=== PATIENT | female | born 1940 | race Caucasian/White ===

== ENCOUNTER 2024-04-28 14:08 | Inpatient (IN) | payer OTHER, SELFPAY ==
[2024-04-28] VITALS (8 sets, daily range): BP systolic 89–110; BP diastolic 54–60; BMI 23.9
[2024-04-28 10:38] LABS: Urine Albumin 2+ (Neg - Trace); Urine Bilirubin Negative (Negative); Urine Character Clear (Clear); Urine Color Yellow; Urine Glucose Negative (Negative); Urine Ketone 2+ (Negative); Urine Leukocyte Negative (Negative); Urine Nitrite Negative (Negative); Urine Occult Blood Negative (Negative); Urine Specific Gravity 1.025 (<1.030); Urine Urobilinogen Negative (Neg - 1+)
[2024-04-28 10:46] LABS: Urine Red Blood Cell 0-2 /HPF (0-2); Urine Squamous Cell >30 /LPF (Few); Urine White Cell 0-2 /HPF (0-5)
[2024-04-28 10:53] LABS: % Basophils 0.5 % (0-2); % Eosinophils 2.2 % (0-6); % Immature Granulocytes 0.3 % (0-0.5); % Lymphocytes 11.7 % (20.5-51.1); % Monocytes 11.9 % (1.7-9.3); % Neutrophils 73.4 % (42.2-75.2); Absolute Eosinophils 0.1 10^3/uL (0-0.7); Absolute Lymphocytes 0.7 10^3/uL (1.2-3.4); Absolute Monocytes 0.7 10^3/uL (0.1-0.6); Absolute Neutrophils 4.3 10^3/uL (1.4-6.5); Hematocrit 38.8 % (37.0-47.0); Hemoglobin 12.9 g/dL (12.0-16.0); Mean Corp Hgb Conc. 33.2 g/dL (33.0-37.0); Mean Corpuscular Hgb 29.4 pg (27.0-31.0); Mean Corpuscular Volume 88.4 fL (81.0-99.0); Mean Platelet Volume 9.3 fL (7.4-10.4); Nucleated Red Blood Cells % 0 %; Platelet Count 229 10^3/uL (130-400); Red Blood Cell Count 4.39 10^6/uL (4.20-5.40); Red Cell Dist. Width 13.4 % (11.5-14.5); White Blood Cell Count 5.9 10^3/uL (4.8-10.8)
[2024-04-28] MEDS: DUONEB 3 ML INH ×3 (11:20→20:31)
--- NOTE | 2024-04-28 11:23 | ED.GENMED ---
History of Present Illness
General
Chief Complaint: Change in Mental Status
Source: patient and family
Exam Limitations: dementia
Time Seen by Provider: 04/28/24 10:31
Nursing documentation reviewed up to this point in time: agreed with
History of Present Illness
History of Present Illness:
84-year-old female prior stroke dementia smoker presents with confusion was in bed today covered in urine, she has been coughing which is not uncommon for her no fevers, no vomiting no chest pain appears to be closer to her baseline now per the
family than she was earlier no seizure-like activity seen
Past History
Past History
ED Past Medical History: HTN, Hypothyroidism, Psychiatric (Paranoid schizophrenia) and Other (Vocal cord surgery, memory issues)
ED Past Surgical History: None
Social History
Tobacco: Smoker
Alcohol: None
Drug: None
Personal:
Living: with family
Employment: Retired
Review of Systems
Review of Systems
Unable to obtain full review of systems at this time due to: dementia
Other source history: family
All Other Systems: Not applicable
Constitutional: Reports fatigue
Respiratory: Reports cough
Cardiac: Reports no symptoms
ABD/GI: Denies abdominal pain or nausea
: Reports incontinence
Musculoskeletal: Reports no symptoms
Skin: Reports no symptoms
Neurological: Reports weakness
Phy Exam
Physical Exam
Physical Exam:
Physical Exam
General: 84-year-old female slightly tachypneic occasional cough
Neck: Lips slightly
Heart: Regular
Lungs: Wheeze and rhonchi right greater than
Abdomen: Nontender
Neuro: Demented moves all extremities globally
Skin: no rash
Psychiatric: Cooperative demented
Extremities: no edema.
Course
Orders/Labs/Results
Orders:
Orders
04/28/24 10:30
Urinalysis Reflex To Culture Urgent
Date Specimen was Collected: 04/28/24
Time Specimen was Collected: 10:29
Urine Microscopic Reflex Cult Urgent
04/28/24 10:44
Complete Blood Count/With Diff Urgent
04/28/24 11:10
Ipratropium/Albuterol Sulfate [Duoneb] 3 ml INH R NOW STA
04/28/24 11:11
CT Head W/o Iv Contrast Urgent
Comment:
Reason For Exam: confusion
CR Chest - 2 Views Urgent
Comment:
Reason For Exam: cough
04/28/24 11:18
COVID-19 Antigen Urgent
Source: Nasal Swab
Comprehensive Metabolic Panel Urgent
Influenza A+B Rapid Molecular Urgent
MARY[facility] Source: Nasal Swab
Specimen Description:
04/28/24 12:51
Dexamethasone Sod Phosphate [Decadron] 6 mg IV NOW STA
04/28/24 12:52
ABG [Arterial Blood Gas] Urgent
%Oxygen/Room Air: 3
O2 Therapy [RESP] Urgent
Titrate/Wean O2 to maintain O2 sat greater than (%): 94
Abnormal Lab Results
04/28/24 04/28/24 04/28/24
10:30 10:44 11:18
Absolute Lymphs (auto) 0.7 L 10^3/uL
(1.2-3.4)
Absolute Monos (auto) 0.7 H 10^3/uL
(0.1-0.6)
Lymphocytes % 11.7 L %
(20.5-51.1)
Monocytes % 11.9 H %
(1.7-9.3)
Sodium 134 L mmol/L
(135-145)
Carbon Dioxide 21 L mmol/L
(22-30)
BUN 20 H mg/dl
(7-17)
Glucose 107 H mg/dl
(70-99)
Total Protein 5.7 L g/dl
(6.3-8.2)
Urine Ketones 2+ A
(Negative)
Urine Albumin (Reflex) 2+ A
(Neg - Trace)
04/28/24 10:44
04/28/24 11:18
Vital Signs
Initial and Last Documented VS:
Initial Vital Signs
Temp Pulse Resp BP Pulse Ox
98.0 F 98 18 89/55 95
04/28/24 10:08 04/28/24 10:08 04/28/24 10:08 04/28/24 10:08 04/28/24 10:08
Last Documented Vital Signs
Temp Pulse Resp BP Pulse Ox
98.0 F 88 22 104/57 95
04/28/24 10:08 04/28/24 11:00 04/28/24 11:00 04/28/24 11:00 04/28/24 11:07
MDM/Problems Addressed
Differential Diagnosis Includes:
Bronchitis pneumonia influenza dehydration UTI occult stroke occult head trauma
MDM/Problems Addressed:
Confusion weakness
Chronic conditions affecting care: Neurological disorder
Acute Exacerbation and/or Progression of Chronic Illness:
Smoker
Acute Exacerbation and/or Progression of Chronic Illness: Neurological disorder and Other (Smoke)
*Radiology
Radiology exam reviewed: preliminary read by ED provider and radiology read reviewed
*Pulse Oximetry
Patient hypoxic: yes
Comment: 88
*EKG
Interpreted by ED Provider?: Yes
Interpretation: abnormal
Comparison EKG: no comparison EKG present
Heart Rate: 78
Rate: normal
Ischemia: non-specific ST changes
*Compound Mixer Interpretation
Rate: normal
Interpretation: normal
Heart Rate: 78
Rhythm: sinus
*Critical Care Note
Total Time (30-74mins, 75-104mins- exclusive of procedures): Not Applicable
Update Note
Update Note:
Update labs noted urine noted chest x-ray and CT of the head noted patient does desaturate to 88% on room air while resting, suspect she has underlying COPD heavy smoker continues to smoke, family states she has been herself recently, has not take
her home will admit start of steroids and oxygen check ABG message sent to hospitalist
ED Attending Note
-
Portions of this chart may have been created with voice recognition software.� Occasional wrong word or��sound alike� substitutions may have occurred due to the inherent limitations of voice recognition software.
Discharge Plan
Departure
Patient Disposition: Admit
Date of Disposition: 04/28/24
Time of Disposition: 12:55
Admit to: Med/Surg
Presentation/result/management discussed w/ accepting MD/DO: Hospitalist
Patient with high blood pressure during this ER visit?: No
Condition: Fair
Covid-19: Negative COVID-19
Discharge Problem:
Hypoxia, Bronchitis
Prescriptions:
No Action
olanzapine 2.5 mg Tablet
2.5 mg PO HS
aspirin 81 mg Tablet,Delayed Release (Dr/Ec)
81 mg PO QPM
levothyroxine [Synthroid] 75 mcg Tablet
75 mcg PO DAILY
ferrous sulfate 325 mg (65 mg iron) Tablet
325 mg PO HS
Referrals:
Iman Girard DO [Family Provider] -
Interventions
Interventions:
*Risk Screen - Suicide Last Done: 04/28/24 10:08
*General Assessment Last Done: 04/28/24 10:08
*Neglect/Abuse Screening Last Done: 04/28/24 10:08
*ED COVID-19 Vaccine History Last Done: 04/28/24 10:16
ED- Neurological Assessment Last Done: 04/28/24 10:27
ED Swallowing Screen Last Done: 04/28/24 10:27
Discharge Date and Time
Print Language: ITALIAN
[2024-04-28 11:37] LABS: ALT (SGPT) 16 U/L (0-35); AST (SGOT) 35 U/L (14-36); Albumin 3.6 g/dl (3.5-5.0); Alkaline Phosphatase 90 U/L (38-126); Blood Urea Nitrogen 20 mg/dl (7-17); Calcium 8.8 mg/dl (8.4-10.2); Carbon Dioxide 21 mmol/L (22-30); Chloride 102 mmol/L (98-107); Glucose 107 mg/dl (70-99); Potassium 4.3 mmol/L (3.5-5.1); Sodium 134 mmol/L (135-145); Total Bilirubin 0.7 mg/dl (0.2-1.3); Total Protein 5.7 g/dl (6.3-8.2); eGFR > 60.00
[2024-04-28 11:55] LABS: COVID-19 Antigen Negative (Negative)
[2024-04-28] MEDS: DECADRON 6 MG IV (12:58)
--- NOTE | 2024-04-28 13:12 | HPS.HSE ---
Family Physician
-
Family Physician: Iman Girard DO
Chief Complaint
-
confusion
History of Present Illness
84-year-old female prior stroke dementia smoker,hypothyroidism presents with confusion since yesterday. she slept all day yesterday and soaked herself in the urine today. even though she has Dementia, she is not confused like this. she was very
disoriented. she has productive cough for three days. patient denied WILEY, dizzy.denied chest pain, sob. denied abdominal pain nausea vomiting and diarrhea. denied dysuria or hematuria.
UA, head CT, chest x ray negative. noted hypoxic in ER. patient received nebs and Decadron. admitting for further management.
Medical History
Past Medical History
Past Medical History: Reports Other
Additional Past Medical History:
Hypothyroidism
Anemia
Depression
Past Surgical History: Reports Other
Additional Past Surgical History:
Vocal cord nodule surgery
Cyst removed from right breast
Social History
Tobacco: Smoker (one pack a day. )
Alcohol: None
Drug: None
Personal: Single
Living: With Family
Family History
Family History: Not pertinent
Allergies / Home Medications
Allergies reflects when Allergies were last updated in [facility].
Home Medications with original date entered in [facility]
Allergy/Medication List:
Allergies
Allergy/AdvReac Type Severity Reaction Status Date / Time
acetaminophen [From Tylenol] AdvReac Nausea / Verified 04/28/24 10:08
Vomiting
Home Medications
aspirin 81 mg tablet,delayed release 81 mg PO QPM 04/28/24
ferrous sulfate 325 mg (65 mg iron) tablet 325 mg PO HS 04/28/24
levothyroxine 75 mcg tablet (Synthroid) 75 mcg PO DAILY 04/28/24
olanzapine 2.5 mg tablet 2.5 mg PO HS 04/28/24
Review of Systems
-
Unable to obtain full review of systems at this time due to: Dementia
Respiratory: Reports Cough
Physical Exam
Vital Signs
Vital Signs
Temp Pulse Resp BP Pulse Ox
98.0 F 88 22 104/57 95
04/28/24 10:08 04/28/24 11:00 04/28/24 11:00 04/28/24 11:00 04/28/24 11:07
Physical Exam
General: Well Developed, Well Nourished and No Apparent Distress
HEENT: NormoCephalic, Moist mucous membranes and Atraumatic
Respiratory: Wheezes
Cardiac: S1/S2 and Regular Rhythm; No Murmur or Rub
GI: Soft, Non Tender, Non Distended and Normal Bowel Sounds; No Organomegaly
Rectal: Deferred by Provider
Musculoskeletal: No Clubbing, No Cyanosis and No Edema
Skin: No Rash
Neuro: AO x 3 and Nonfocal/grossly intact
Psych: Calm
Laboratory Results
-
04/28/24 10:44
04/28/24 11:18
Laboratory Results
Total Bilirubin 0.7 mg/dl (0.2-1.3) 04/28/24 11:18
AST 35 U/L (14-36) 04/28/24 11:18
ALT 16 U/L (0-35) 04/28/24 11:18
Alkaline Phosphatase 90 U/L (38-126) 04/28/24 11:18
Data Reviewed
-
Diagnostic Radiology: Report Reviewed by me
CT Scan: Report Reviewed by me
Lab Data: Labs Reviewed by me
Impression/Plan
-
# Acute hypoxic respiratory failure likely from COPD exacerbation
-COVID-negative
-Negative influenza AMB
-Chest x-ray with impression of No active cardiopulmonary disease.There is elevation/eventration of the right hemidiaphragm with associated subsegmental atelectasis at the right lung base
-Continue supplemental oxygen to keep sat greater than 92
-Wean as tolerated
-Nebs as needed for short of breath and wheezing
-Tessalon as needed for cough
-Solu-Medrol 40 every 8
-Obtain proBNP and Pro-Duarte
-Obtain CT of chest
# Metabolic encephalopathy likely from hypoxia
-Head CT with no acute findings
-UA negative
-Head CT with no acute disease
-Continue to monitor
-psych consulted
# History of CVA aspirin continued
# Iron deficiency anemia
-Ferrous sulfate continued
# Hypothyroidism
-Levothyroxine continued
# History of schizophrenia
-Olanzapine continued
-Psych consulted
#smoker
-1 pack daily.
# DVT prophylaxis
- Lovenox
--- NOTE | 2024-04-28 13:39 | W.PN.UPDATE ---
Update Note
Progress Note Update
I have independently examined the patient and agree with H&P written on the same date. In addition:
84yo F with PMHx of schizophrenia, LUIS, hypothyroidism, progressive dementia found confused in AM and brought to the hospital. Wheezing on exam.
A/P:
#Acute metabolic encephalopathy vs progressive dementia
#Schizophrenia
check ABG, ammonia, TSH, UDS
Head CT without acute findings
psych consult
PT/OT and might need placement - CM consult
#WHeezing/rales on exam with acute respiratory insufficiency
XR chest WNL
CT chest
Steroids taper, bronchodilators
Wean off O2
Check proBNP
COVID-19 and influenza PCR neg
#LUIS
#Hypothyroidism
cont home meds
DVT ppx lovenox
CPR allowed, no intubation as per family
It was more then 75min spent reviewing chart, test results, communication with consultants, family and direct patient care
[2024-04-28 14:12] LABS: NT-proBNP 957 pg/ml
[2024-04-28 14:18] LABS: Amphetamines Negative (Negative); Barbiturates Negative (Negative); Benzodiazepines Negative (Negative); Buprenorphine Negative (Negative); Cocaine Negative (Negative); Marijuana Negative (Negative); Methadone Negative (Negative); Methamphetamines Negative (Negative); Opiates Negative (Negative); Phencyclidine Negative (Negative); Tricyclic Antidepressants Negative (Negative)
[2024-04-28 14:19] LABS: Procalcitonin < 0.05 ng/ml (0.0-0.25)
[2024-04-28 14:21] LABS: B.E. -1.2 mmol/L; HCO3 22.6 mmol/L (21-28); O2 Saturation % 98.6 % (94-98); PCO2 34 mmHg (32-35); PO2 104 mmHg (83-108); pH 7.43 (7.35-7.45)
[2024-04-28 15:31] LABS: Ammonia 19 umol/L (9-30)
[2024-04-28 15:53] LABS: TSH 2.01 uIU/ml (0.47-4.68)
--- NOTE | 2024-04-28 16:02 | CON.MD ---
Consultation - Medical
-
patient seen chart reviewed. the patient had NO capacity to give a hx not even her name. she answered 'i don't know' to every question i asked her even very easy questions. she only knew her name. discussed w nursing. spoke to patient's d .
patient was dx with 'paranoid schizophrenia' about fifty years ago. she did not initially take any medications. d says for a long time she was 'functional ' but she was always paranoid eg thinking people were stealing from her. she did see a
psychiatrist for years dr bird including during cov. she has been on a number of psychotropic medications over the years. d feels that zyprexa helped her. patient without it would call the police constantly to report crimes being committed.
she has had a number of living arrangements. she had her own place during cov but was thrown out bc accusing the press assistant of stealing etc. she went to live w leopoldo for a while then left and got a place of her own again. a few years ago she started w
cognitive decline it was felt she should live with someone so she went to live with her son at night and spends the day w her daughter. d picks her up during the day and brings her to her house. d tried to take her to adult day care but it did not
work out as patient fearful unless d stayed with her with of course she could not do. d says 'i love my mother even though she is difficult...she's my mother..i know she is ill.' d says mom is a heavy smoker. d reports she takes 2.5 mg olanzapine
and that seems to take the edge off. patient does see a neurologist at [facility] dr richter who tried aricept and d says it made the patient worse 'crazy dreams.' d reports that when patient is doing well she is relatively interactive and pleasant. she
does word searches. watches tv. d says her baseline is rather paranoid frequently thinks people are stealing from her. d felt mom was improving by the time d left the hospital to return home
past psych hx patient was never hosp psychiatrically see above
past medical hx copd exacerbation patient w hx hypothyroid, d told me she thought her mom had kidney disease but cr is nl. bun sl elevated at 20 glucose is sl elevated but it is not fasting. tsh and free t4 are okay. cxr w some atelectasis cat
brain with atrophy /degenerative no acute changes
family hx sister alcoholic brother alcoholic gm severe mental illness
substance abuse denied
social hx patient two kids who are supportive
mental status exam patient lying calmly. she was alert in that she answered questions reasonably quickly but with 'i don't know' answers. she was unable to give me any information that was relevant all of which was obtained from her daughter
dx tme secondary to medical schizophrenia
plan hopefully patient will improve cognitively to her baseline w rx of underlying medical (copd) for now would continue w zyprexa 2.5 mg which is a very small dose and i doubt this is the cause of her sx. will follow
[2024-04-28] MEDS: STERILE WATER FOR INJECTION 10 ML IV (17:28)
[2024-04-28] MEDS: ROCEPHIN 1000 MG IV (17:28)
[2024-04-28] MEDS: ASPIR LOW (ENTERIC COATED) 81 MG PO (17:28)
[2024-04-28] MEDS: LOVENOX 40 MG SC (17:28)
[2024-04-28] MEDS: SOLU-MEDROL PF 40 MG IV (17:29)
--- NOTE | 2024-04-28 19:12 | PTCARENOTE ---
Received patient from ED [facility]. Pt has history of dementia an paranoid schizophrenia. Spoke to patients daughter on phone to obtain history information. Pt oriented to room. Pt place on bed alarm. Made patient comfortable. Cont to assess patient
status.
[2024-04-28] MEDS: VIBRAMYCIN 100 MG PO (21:51)
[2024-04-28] MEDS: MUCINEX 600 MG PO (21:52)
[2024-04-28] MEDS: FEOSOL 325 MG PO (21:53)
[2024-04-28] MEDS: ZYPREXA 2.5 MG PO (21:53)
[2024-04-29] MEDS: SOLU-MEDROL PF 40 MG IV (02:45)
[2024-04-29 04:15] LABS: Amphetamines Negative (Negative); Barbiturates Negative (Negative); Benzodiazepines Negative (Negative); Buprenorphine Negative (Negative); Cocaine Negative (Negative); Marijuana Negative (Negative); Methadone Negative (Negative); Methamphetamines Negative (Negative); Opiates Negative (Negative); Phencyclidine Negative (Negative); Tricyclic Antidepressants Negative (Negative)
[2024-04-29] MEDS: SYNTHROID 75 MCG PO (05:33)
[2024-04-29 06:00] VITALS: BMI 23.3
[2024-04-29] MEDS: DUONEB 3 ML INH ×3 (07:14→14:40)
[2024-04-29 07:40] VITALS: BP 102/51
[2024-04-29] MEDS: MUCINEX 600 MG PO (09:27)
[2024-04-29] MEDS: VIBRAMYCIN 100 MG PO (09:27)
--- NOTE | 2024-04-29 09:27 | W.PN.HOSP.TC ---
Addendum entered and electronically signed by Lio Brown MD 04/29/24 13:00:
Diagnosed with frontal lobe dementia
Original Note:
Today's Communication/Plan
-
see PN
Assessment / Plan
Assessment / Plan
84yo F with PMHx of schizophrenia, LUIS, hypothyroidism, progressive dementia found confused in AM and brought to the hospital. Wheezing on exam.
A/P:
#Acute metabolic encephalopathy vs progressive dementia
#Schizophrenia
ABG, ammonia, TSH, UDS without abnormalities
Head CT without acute findings
psych consult: patient with long standing progressive cognitive decline, was staying with family, but able to participate in ADL
PT/OT and might need placement - CM consult
#Wheezing/rales on exam with acute respiratory insufficiency with possible RLL pneumonia
Ceftriaxone/Doxy
XR chest WNL
Steroids taper, bronchodilators
Wean off O2
proBNP 957, but not overtly fluid overloaded. with BP marginally low - will avoid Lasix, since no pulmonary edema on CT
COVID-19 and influenza PCR neg
#LUIS
#Hypothyroidism
cont home meds
DVT ppx lovenox
CPR allowed, no intubation as per family
It was more then 35min spent reviewing chart, test results, communication with consultants, family and direct patient care
Anticipated Discharge: 24 - 48 hours
Subjective/Interval History
-
Date of Service: April 29, 2024
Objective Data
-
Vital Signs:
Vital Signs
Temp Pulse Resp BP Pulse Ox
97.2 F 80 16 102/51 92
04/29/24 07:40 04/29/24 07:40 04/29/24 07:40 04/29/24 07:40 04/29/24 07:40
Review of Systems
-
Unable to obtain full review of systems at this time due to: Dementia
History Source: Patient
Physical Exam
-
General: No Apparent Distress
Respiratory: Clear to Auscultation
Cardiac: Regular Rhythm
Neuro: Awake and Alert; Negative Oriented
Psych: Calm and Apparent Dementia
[2024-04-29] MEDS: DELTASONE 20 MG PO (09:51)
[2024-04-29 11:16] VITALS: BP 122/62; BP 89/63; PULSE 88; O2SAT 94
[2024-04-29 11:18] VITALS: BP 122/62; BP 89/63; PULSE 79; O2SAT 93
[2024-04-29 15:15] VITALS: BP 115/75
[2024-04-29] MEDS: ROCEPHIN 1000 MG IV (16:01)
[2024-04-29] MEDS: STERILE WATER FOR INJECTION 10 ML IV (16:03)
--- NOTE | 2024-04-29 16:04 | CM ---
Pt currently confused, unable to obtain information. Initial assessment completed w/ assistance from pt's daughter, Sultana. Pt admitted for confusion.
Sultana stated pt lives w/ her brother in a single story home- no steps to enter. Sultana stated pt resides w/ her brother because he has a single story home and there are no steps, there is 1 small step to the bathroom. Sultana stated pt stays w/ her
during the day. Pt is independent w/ ambulating and ADLs mostly. Sultana reports that pt needs cues to bathe but is able to bathe herself independently. Sultana pt does not cook or use kitchen appliances, she and her brother prepare all of pt's meals.
No SNF/VN/PT hx.
Sultana stated she was prev looking into caregivers/COLUMNIST/COMMENTATOR for pt but agency that was being explored did not service their area. CM stated some other options can be provided for [place] area and surrounding. CM stated [facility] is a commonly
used agency based in [place] and a brochure can be placed at pt's bedside. Sultana was agreeable to this stating she is going to see pt tonight.
Pt is currently on 2L O2, does not use at baseline
Therapy evaluated pt and there are no rehab needs at this time. Currently recommending HH
Plan: Home w/ HH at d/c
[2024-04-29] MEDS: LOVENOX 40 MG SC (17:45)
[2024-04-29] MEDS: ASPIR LOW (ENTERIC COATED) 81 MG PO (17:46)
[2024-04-29] MEDS: DUONEB INH (19:12)
[2024-04-29] MEDS: MUCINEX PO ×2 (20:33→22:34)
[2024-04-29] MEDS: VIBRAMYCIN PO ×2 (20:33→22:34)
[2024-04-29] MEDS: FEOSOL PO ×2 (20:59→22:33)
[2024-04-29] MEDS: ZYPREXA PO ×2 (20:59→22:33)
--- NOTE | 2024-04-29 21:05 | PTCARENOTE ---
Pt uncooperative, pt hit spoon of pills at this nurse. When attempting to lower bed for safety pt grabbed this RN stethascope from around neck and grabbing and hitting. Pt refusing medications at this time. Pt confused and unable to orient at this
time. Bed alarm in place. Close monitoring maintained. will continue to monitor.
--- NOTE | 2024-04-29 23:30 | PTCARENOTE ---
Pt refused vital signs. Pt continues to be agitated and not allow care when offered. Will continue to monitor.
[2024-04-30 04:06] VITALS: BP 128/65
--- NOTE | 2024-04-30 04:07 | PTCARENOTE ---
Pt now pleasant and cooperative. Vital signs obtained. Will continue to monitor.
[2024-04-30] MEDS: SYNTHROID 75 MCG PO (05:46)
[2024-04-30 06:59] LABS: % Eosinophils 0.2 % (0-6); % Immature Granulocytes 0.6 % (0-0.5); % Lymphocytes 13.4 % (20.5-51.1); % Monocytes 11.6 % (1.7-9.3); % Neutrophils 74.2 % (42.2-75.2); Absolute Lymphocytes 0.7 10^3/uL (1.2-3.4); Absolute Monocytes 0.6 10^3/uL (0.1-0.6); Absolute Neutrophils 3.8 10^3/uL (1.4-6.5); Hematocrit 35.8 % (37.0-47.0); Hemoglobin 11.9 g/dL (12.0-16.0); Mean Corp Hgb Conc. 33.2 g/dL (33.0-37.0); Mean Corpuscular Volume 87.1 fL (81.0-99.0); Mean Platelet Volume 9.5 fL (7.4-10.4); Nucleated Red Blood Cells % 0 %; Platelet Count 263 10^3/uL (130-400); Red Blood Cell Count 4.11 10^6/uL (4.20-5.40); Red Cell Dist. Width 13.2 % (11.5-14.5); White Blood Cell Count 5.2 10^3/uL (4.8-10.8)
[2024-04-30 07:00] VITALS: BP 122/76
[2024-04-30] MEDS: DUONEB 3 ML INH ×3 (08:22→15:31)
[2024-04-30] MEDS: DELTASONE 20 MG PO (08:54)
[2024-04-30] MEDS: VIBRAMYCIN 100 MG PO ×2 (08:54→20:02)
[2024-04-30] MEDS: FLUSH (NSS) 1 FLUSH IV (08:54)
[2024-04-30] MEDS: MUCINEX 600 MG PO ×2 (08:54→20:02)
[2024-04-30 11:00] VITALS: BMI 23.2
--- NOTE | 2024-04-30 11:06 | W.PN.HOSP.TC ---
Today's Communication/Plan
-
Possible d?c home in AM if still afebrile
Assessment / Plan
Assessment / Plan
84yo F with PMHx of schizophrenia, LUIS, hypothyroidism, progressive dementia found confused in AM and brought to the hospital. Wheezing on exam rapidly improved. Managed for RLL pneumonia. Back to baseline: patient with dementia and chronic
word-finding difficulty, but cooperative, able to conduct ADL. Family is taking care of her at home and she is rarely left alone.
A/P:
#Acute metabolic encephalopathy vs progressive dementia
#Schizophrenia
ABG, ammonia, TSH, UDS without abnormalities
Head CT without acute findings
psych consult: patient with long standing progressive cognitive decline, was staying with family, but able to participate in ADL
PT/OT and might need placement - CM consult
#Wheezing/rales on exam with acute respiratory insufficiency with possible RLL pneumonia
Ceftriaxone/Doxy
XR chest WNL
Steroids taper, bronchodilators
Wean off O2
proBNP 957, but not overtly fluid overloaded. with BP marginally low - will avoid Lasix, since no pulmonary edema on CT
COVID-19 and influenza PCR neg
#LUIS
#Hypothyroidism
cont home meds
DVT ppx lovenox
CPR allowed, no intubation as per family
It was more then 35min spent reviewing chart, test results, communication with consultants, family and direct patient care
Anticipated Discharge: Within 24 hours
Subjective/Interval History
-
Date of Service: April 30, 2024
Objective Data
-
Labs:
Laboratory Results
04/30/24
06:36
WBC 5.2
Hgb 11.9 L
Hct 35.8 L
Plt Count 263
Vital Signs:
Vital Signs
Temp Pulse Resp BP Pulse Ox
98.0 F 77 16 122/76 93
04/30/24 07:00 04/30/24 08:26 04/30/24 08:26 04/30/24 07:00 04/30/24 09:07
I&O
04/29/24 04/30/24 05/01/24
06:59 06:59 06:59
Intake Total 240 / 240
Balance 240 / 240
Review of Systems
-
Unable to obtain full review of systems at this time due to: Dementia
History Source: Patient
Physical Exam
-
General: No Apparent Distress
Respiratory: Clear to Auscultation
Cardiac: Regular Rhythm
Skin: Warm
Neuro: Awake and Alert
Psych: Calm and Apparent Dementia
--- NOTE | 2024-04-30 13:29 | CM ---
Chart reviewed for d/c planning needs. Per chart, poss d/c tomorrow.
Therapy recommending HH. CM to confirm w/ family about VN/PT
Plan; Home w/ son
--- NOTE | 2024-04-30 14:08 | W.PN.UPDATE ---
Update Note
Progress Note Update
patient seen chart reviewed. discussed with nursing. patient was actually quite pleasant today. we talked about grandkids and she was able to look at px of mine and responded quite appropriately and touchingly. d visited this am which she told me.
patient said she is feeling better. i discussed with her that she needed to consider stopping or at least decreasing the cigs. she asked me why and i explained to her that it is making her breathing more difficult. she agreed to try nicotine patch
which i have ordered. have continue zyprexa as is. she does require a careful approach as she tends to be rather paranoid. if you approach her cheerfully and in a non threatening manner she does much better. she seems to respond well to very small
talk. she told me she likes the view outside her window!
[2024-04-30 15:00] VITALS: BP 131/67
[2024-04-30] MEDS: STERILE WATER FOR INJECTION 10 ML IV (16:20)
[2024-04-30] MEDS: ROCEPHIN 1000 MG IV (16:20)
[2024-04-30] MEDS: NICODERM TRANSDERMAL 21 MG TRANSDERM (16:20)
[2024-04-30] MEDS: ASPIR LOW (ENTERIC COATED) 81 MG PO (17:28)
[2024-04-30] MEDS: LOVENOX 40 MG SC (17:28)
[2024-04-30] MEDS: FEOSOL 325 MG PO (20:02)
[2024-04-30] MEDS: ZYPREXA 2.5 MG PO (20:02)
[2024-04-30] MEDS: DUONEB INH (21:00)
[2024-04-30 23:55] VITALS: BP 125/63
[2024-05-01] MEDS: SYNTHROID 75 MCG PO (04:48)
[2024-05-01 06:00] VITALS: BMI 23.1
[2024-05-01 07:00] VITALS: BP 129/67
[2024-05-01] MEDS: DUONEB 3 ML INH (07:54)
[2024-05-01] MEDS: NICODERM TRANSDERMAL 21 MG TRANSDERM (08:43)
[2024-05-01] MEDS: MUCINEX 600 MG PO (08:43)
[2024-05-01] MEDS: VIBRAMYCIN 100 MG PO (08:43)
[2024-05-01] MEDS: DUONEB INH (11:25)
--- NOTE | 2024-05-01 12:13 | W.PN.HOSP.TC ---
Today's Communication/Plan
-
dc
Assessment / Plan
Assessment / Plan
84yo F with PMHx of schizophrenia, LUIS, hypothyroidism, progressive dementia found confused in AM and brought to the hospital. Wheezing on exam rapidly improved. Managed for RLL pneumonia. Back to baseline: patient with dementia and chronic
word-finding difficulty, but cooperative, able to conduct ADL. Family is taking care of her at home and she is rarely left alone. Remained with no leukocytosis and afebrile, weaned off O2, reasonable to d/c home to complete oral course of Abx.
Medically stable for d/c
A/P:
#Acute metabolic encephalopathy vs progressive dementia
#Schizophrenia
ABG, ammonia, TSH, UDS without abnormalities
Head CT without acute findings
psych consult: patient with long standing progressive cognitive decline, was staying with family, but able to participate in ADL
PT/OT and might need placement - CM consult
#Wheezing/rales on exam with acute respiratory insufficiency with possible RLL pneumonia
Ceftriaxone/Doxy
XR chest WNL
Steroids taper, bronchodilators
Wean off O2
proBNP 957, but not overtly fluid overloaded. with BP marginally low - will avoid Lasix, since no pulmonary edema on CT
COVID-19 and influenza PCR neg
#LUIS
#Hypothyroidism
cont home meds
DVT ppx lovenox
CPR allowed, no intubation as per family
It was more then 35min spent reviewing chart, test results, communication with consultants, family and direct patient care
Anticipated Discharge: Today
Subjective/Interval History
-
Date of Service: May 01, 2024
Objective Data
-
Vital Signs:
Vital Signs
Temp Pulse Resp BP Pulse Ox
97.7 F 78 16 129/67 94
05/01/24 07:00 05/01/24 07:57 05/01/24 07:57 05/01/24 07:00 05/01/24 08:45
I&O
04/30/24 05/01/24 05/02/24
06:59 06:59 06:59
Intake Total 240 / 240 240 / 240
Output Total 100 / 100
Balance 240 / 240 140 / 140
Review of Systems
-
Unable to obtain full review of systems at this time due to: Dementia
History Source: Patient
All other systems: Reviewed and negative
Physical Exam
-
General: No Apparent Distress
HEENT: Normocephalic
Cardiac: Regular Rhythm
GI: Soft, Nontender and Nondistended
Neuro: Awake, Alert, Oriented and AO x 3
Psych: Calm
--- NOTE | 2024-05-01 12:16 | W.DCSUMMARY ---
Discharge Summary
Discharge Data
Date of Admission: 04/28/24
Date of Discharge: 05/01/24
-
Pending Results: No
Hospital Course
84yo F with PMHx of schizophrenia, LUIS, hypothyroidism, progressive dementia found confused in AM and brought to the hospital. Wheezing on exam rapidly improved. Managed for RLL pneumonia. Back to baseline: patient with dementia and chronic
word-finding difficulty, but cooperative, able to conduct ADL. Family is taking care of her at home and she is rarely left alone. Remained with no leukocytosis and afebrile, weaned off O2, reasonable to d/c home to complete oral course of Abx.
Medically stable for d/c
It was more then 35min spent reviewing chart, test results, communication with consultants, family and direct patient care
Patient was managed for:
#Acute metabolic encephalopathy vs progressive dementia
#Schizophrenia
#Wheezing/rales on exam with acute respiratory insufficiency with possible RLL pneumonia
#LUIS
#Hypothyroidism
Discharge Plan
-
Patient Disposition: Home with Home Care
Discharge Diagnosis/Procedures: Pneumonia
Diet: Regular
Activity: As tolerated
Driving Restrictions: As prior to admission
Referrals:
Iman Girard DO [Family Provider] -
Prescriptions:
New
doxycycline hyclate 100 mg Capsule
100 mg PO Q12 Qty: 6 0RF
cefdinir 300 mg capsule
300 mg PO BID Qty: 3 0RF
Continued
olanzapine 2.5 mg Tablet
2.5 mg PO HS
aspirin 81 mg Tablet,Delayed Release (Dr/Ec)
81 mg PO QPM
levothyroxine [Synthroid] 75 mcg Tablet
75 mcg PO DAILY
ferrous sulfate 325 mg (65 mg iron) Tablet
325 mg PO HS
Discharge Orders:
Discharge Patient (As Directed); Ordered 05/01/24
Ordered By: Lio Brown
Discharge Date and Time
Print Language: SAMOAN
[2024-05-01 12:35] VITALS: BP 99/70
--- NOTE | 2024-05-01 13:03 | W.PN.UPDATE ---
Update Note
Progress Note Update
Pt seen, sitting up in chair, alert, making eye contact, calm. Pt trying to answer/converse, but not able to give any meaningful information. Speech/thought rambling, disjointed. No overt signs of active psychosis. No signs of side effects on
Zyprexa.
Imp: TME, improving. Dementia
Schizophrenia by history, appears stable on Zyprexa
Rec: continue current dose of Zyprexa. Outpatient med mgt, as previous, when medically stable
will follow
--- NOTE | 2024-05-01 17:16 | CM ---
Patient with Hx dementia, Schizophrenia with Dx PNA. Room air. Patient has sitter in room. PT/OT recommend HH.
Met with patient and spoke with daughter Sultana by phone; patient confused and seemingly unable to comprehend the coversation re; her discharge. Daughter agrees with d/c today and will provide transport home. IMM completed and copy sent to her
email at [email or web address]. Daughter agrees to a referral to [facility] for SN/PT/OT.
Referral to [facility] (fax [phone]) accepted in [facility].
Plan home today with [facility], with daughter.
== END 2024-05-01 14:43 | disposition home health service (06) | DRG 193 ==
LOC: 4 EAST ACU 14:08
PROVIDERS: Registered Nurse; ADMITTING PHYSICIAN Internal Medicine; CONSULT PHYSICIAN Psychiatry & Neurology Psychiatry; EMERGENCY PHYSICIAN Emergency Medicine; FAMILY PHYSICIAN Family Medicine
DX: J18.1 Lobar pneumonia, unspecified organism (principal); G93.41 Metabolic encephalopathy; J96.01 Acute respiratory failure with hypoxia; F03.93 Unspecified dementia, unspecified severity, with mood disturbance; F20.0 Paranoid schizophrenia; J44.1 Chronic obstructive pulmonary disease with (acute) exacerbation; J98.11 Atelectasis; F17.210 Nicotine dependence, cigarettes, uncomplicated; Z11.52 Encounter for screening for COVID-19; F32.A Depression, unspecified; E03.9 Hypothyroidism, unspecified; D50.9 Iron deficiency anemia, unspecified; Z86.73 Personal history of transient ischemic attack (TIA), and cerebral infarction without residual deficits
CPT/HCPCS: 70450; 71046; 71260; 80053; 80306; 81003; 81015; 82140; 82805; 83880; 84145; 84443; 85025; 87502; 87811; 94640; 96374; 97116; 97162; 97166; 97535; 99285; 99406; Q9967